=== PATIENT | female | born 1965 | race Caucasian/White ===

== ENCOUNTER 2022-05-31 12:17 | Day surgery (SDC) | payer OTHER ==
[~2022-05-31] VITALS: Ht 149.9 cm; Wt 74.9 kg
[~2022-05-31 12:17] MED LIST: ACET325T51 PO; ALBU8HFA IH; AMLO-258 PO; ASCO500T20 PO; ATOR40TA28 PO; BUDE10.27 IH; CLOP75TA60 PO; HYDR25TA2 PO; SODIUM CHLORIDE 0.9% 1,000 ML ONE
[2022-05-31] MEDS ORDERED: SODIUM CHLORIDE 0.9% 1,000 ML IV ONE (13:00)
[2022-05-31] MEDS ORDERED: DIAZEPAM 5 MG TABLET ONE (14:20)
[2022-05-31] MEDS ORDERED: DiphenhydrAMINE HCL 50 MG CAPSULE ONE (14:20)
[2022-05-31] MEDS ORDERED: ASPIRIN 81 MG CHEWABLE TABLET ONE (14:21)
[2022-05-31] MEDS ORDERED: ASPIRIN 81 MG CHEWABLE TABLET PO ONE (15:00)
[2022-05-31] MEDS ORDERED: DiphenhydrAMINE HCL 50 MG CAPSULE PO ONE (15:00)
[2022-05-31] MEDS ORDERED: DIAZEPAM 5 MG TABLET PO ONE (15:00)
[2022-05-31] MEDS ORDERED: IOHEXOL 300 MG/ML 10 ML VIAL ONE (16:13)
[2022-05-31] MEDS ORDERED: HEPARIN SODIUM 1000 UNITS/NS 500 ML ONE (16:13)
[2022-05-31] MEDS ORDERED: LIDOCAINE/PF 1% 30 ML VIAL ONE (16:13)
[2022-05-31] MEDS ORDERED: SODIUM BICARBONATE 50 MEQ/50 ML VIAL ONE (16:13)
[2022-05-31] MEDS ORDERED: IOHEXOL 300 MG/ML 100 ML VIAL ONE (16:14)
[2022-05-31 16:21] VITALS: BP 135/64
[2022-05-31] MEDS ORDERED: FentaNYL CITRATE PF 100 MCG/2 ML VIAL ONE (16:29)
[2022-05-31] MEDS ORDERED: MIDAZOLAM HCL 2 MG/2 ML VIAL ONE (16:29)
[2022-05-31] MEDS ORDERED: DiphenhydrAMINE HCL 50 MG/ML VIAL ONE (16:39)
[2022-05-31] MEDS ORDERED: FentaNYL CITRATE PF 100 MCG/2 ML VIAL IVP ONE (16:45)
[2022-05-31] MEDS ORDERED: LIDOCAINE 1% 30 ML/SOD BICARB 8.4% 4 ML SQ ONE (16:45)
[2022-05-31] MEDS ORDERED: IOHEXOL 300 MG/ML 100 ML VIAL IARTER ONE (16:45)
[2022-05-31] MEDS ORDERED: HEPARIN SODIUM 1000 UNITS/NS 1,000 ML IARTER ONE (16:45)
[2022-05-31] MEDS ORDERED: DiphenhydrAMINE HCL 50 MG/ML VIAL IVP ONE (16:45)
[2022-05-31] MEDS ORDERED: MIDAZOLAM HCL 2 MG/2 ML VIAL IVP ONE (16:45)
[2022-05-31] MEDS ORDERED: NITROGLYCERIN/D5W 50 MG/250 ML IV BOTTLE IARTER ONE (17:00)
[2022-05-31] MEDS ORDERED: HEPARIN SODIUM,PORCINE 1,000 UNITS/ML 10 ML VIAL IARTER ONE (17:00)
[2022-05-31 17:11] VITALS: BP 146/56
== END 2022-05-31 19:35 | disposition home or self-care (01) ==
LOC: CATHLAB 12:17
PROVIDERS: ATTEND Internal Medicine Interventional Cardiology
DX: R94.39 Abnormal result of other cardiovascular function study (principal); I10 Essential (primary) hypertension; J45.909 Unspecified asthma, uncomplicated; Z90.49 Acquired absence of other specified parts of digestive tract; Z98.890 Other specified postprocedural states; Z88.8 Allergy status to other drugs, medicaments and biological substances; Z86.73 Personal history of transient ischemic attack (TIA), and cerebral infarction without residual deficits; Z91.041 Radiographic dye allergy status; E03.9 Hypothyroidism, unspecified
CPT/HCPCS: 93458; 99152; 93005; J1200; J3010; J1644; J3490 ×2; J2250; J7030; Q9967